=== PATIENT | female | born 2000 | race Hispanic/Latino ===

== ENCOUNTER 2024-04-01 01:14 | Emergency (ER) | payer BC ==
[2024-04-01] MEDS ORDERED: HYDROmorphone 0.5 MG/0.5 ML SYRINGE ONE (01:27)
[2024-04-01] MEDS ORDERED: Promethazine HCl 25 MG/ML VIAL IM SCH (02:00)
== END 2024-04-01 02:50 | disposition home or self-care (01) ==
LOC: CSHERS 01:14
DX: K80.50 Calculus of bile duct without cholangitis or cholecystitis without obstruction (principal)
CPT/HCPCS: 96372; 99283; J2550